=== PATIENT | female | born 1955 | race Caucasian/White ===

== ENCOUNTER 2016-05-28 10:11 | Day surgery (SDC) | payer OTHER, MEDICAID ==
--- NOTE | 2016-05-27 17:45 | GHP ---
[f rep st] PREOP HISTORY AND PHYSICAL DATE OF ADMISSION: 05/28/2016 HISTORY OF PRESENT ILLNESS: The patient is a 60-year-old, right-hand dominant, female with renal failure not yet on dialysis. She anticipates needing dialysis soon and so she is here to discuss arteriovenous fistula creation. Ultrasound in the office revealed a cephalic vein in the upper arm measuring 3.1 mm and 3.0 mm at the wrist. She had an upper arm basilic vein on the left side measuring 2.7 mm. Risks and options have been fully discussed including, but not limited to, bleeding, infection, nerve injury, steal syndrome, failure to mature, need for revision, need for alternate access and other problems, and she requests to proceed. PAST MEDICAL HISTORY: Includes diabetes, hypertension, chronic kidney disease, anemia, pulmonary hypertension on oxygen. PAST SURGICAL HISTORY: Lung cancer surgery and heart valve surgery. MEDICATIONS: Kionex, torsemide, magnesium, Cymbalta, aspirin, Humulin insulin, simvastatin, Coreg, vitamin, Benadryl, calcitriol, ranitidine, Zofran. ALLERGIES: Glipizide. SOCIAL HISTORY: The patient is . She is a nondrinker, nonsmoker. FAMILY HISTORY: Diabetes and cancer, type unspecified. REVIEW OF SYSTEMS: Includes nausea. PHYSICAL EXAM: GENERAL: Reveals a chronically ill-appearing, 60-year-old female, alert and oriented x3, in no acute distress with oxygen. HEENT: Normocephalic atraumatic. CHEST: Clear to auscultation bilaterally with midline scar. CARDIAC: Regular rate and rhythm. ABDOMEN: Soft, nontender, with a rash. EXTREMITIES: Palpable radial pulses. IMPRESSION: This is a 60-year-old female with multiple comorbidities and chronic kidney disease, anticipating initiation of dialysis. PLAN: Plan is to proceed with a left arteriovenous fistula creation. This will likely be brachiocephalic. We will be getting clearance from her texturing machine fixer and her pressurised container filler. There was some talk of biopsying the rash on her abdominal wall, but per her human resources team member this is not needed. Again risks and options have been discussed and she requests to proceed. /[id number]/MODL MTDD
[2016-05-28 13:46] LABS: % IMMATURE GRANULYOCYTES 0.3 % (0.0-1.1); ABSOLUTE IMMATURE GRANULOCYTES 0.02 10^3/uL (0.00-0.10); ADD DIFF? NO; ADD MORPH? NO; ADD SCAN? NO; ATYPICAL LYMPHOCYTE FLAG 0 (0-99); FRAGMENT RBC FLAG 20 (0-99); HEMATOCRIT 27.8 % (38.0-47.0); HEMOGLOBIN 9.1 g/dL (12.6-16.3); LEFT SHIFT FLG 0 (0-99); LIPEMIA HEMOLYSIS FLAG 80 (0-99); MEAN CELL HEMOGLOBIN 30.4 pg (27.9-34.1); MEAN CELL HEMOGLOBIN CONCENTR. 32.7 g/dL (32.4-36.7); MEAN PLATELET VOLUME 9.6 fL (8.7-11.7); PLATELET CLUMPS FLAG 10 (0-99); PLATELET COUNT 232 10^3/uL (150-400); RED BLOOD CELL COUNT 2.99 10^6/uL (4.18-5.33); RED CELL DISTRIBUTION WIDTH 13.5 % (11.5-15.2)
[2016-05-28] MEDS ORDERED: LR 1,000 ML IV ONE (14:03)
[2016-05-28 14:14] LABS: ANION GAP 11 mEq/L (8-16); CALCIUM 8.8 mg/dL (8.5-10.4); CARBON DIOXIDE 27 mEq/l (22-31); CHLORIDE 103 mEq/L (97-110); GLOMERULAR FILTRATION RATE 16; GLUCOSE 135 mg/dL (70-100); POTASSIUM 5.4 mEq/L (3.5-5.2); SODIUM 141 mEq/L (134-144)
[2016-05-28] MEDS ORDERED: ceFAZolin 2 GM/DEXTROSE 100 ML IV ONE (14:30)
[2016-05-28] MEDS ORDERED: THROMBIN (RECOMBINANT) 20,000 UNIT SPRAY TP ONE (15:27)
[2016-05-28] MEDS ORDERED: SKIN ADHESIVE (DERMABOND) 1 EACH TP ONE (15:27)
[2016-05-28] MEDS ORDERED: THROMBIN (RECOMBINANT) 5,000 UNIT VIAL TP ONE (15:28)
[2016-05-28] MEDS ORDERED: BUPIVACAINE 0.5% 30 ML SDV ONE (15:28)
[2016-05-28] MEDS ORDERED: PAPAVERINE HCL 60 MG/2 ML SDV ONE (15:28)
[2016-05-28] MEDS ORDERED: PROTAMINE SULFATE 50 MG/5 ML VIAL IVP ONE (15:28)
[2016-05-28] MEDS ORDERED: MIDAZOLAM 2 MG/2 ML VIAL ONE (15:33)
[2016-05-28] MEDS ORDERED: LIDOCAINE 1% 30 ML SDV ONE (15:49)
--- NOTE | 2016-05-28 21:20 | GOP ---
[f rep st] OPERATIVE REPORT DATE OF OPERATION: 05/28/2016 SURGEON: Anup Davis MD CATALOG LIBRARY ASSISTANT: KLEVER Aburto ANESTHESIA: General endotracheal. ANESTHESIOLOGIST: Dr. Rivas PREOPERATIVE DIAGNOSIS: Chronic renal failure. POSTOPERATIVE DIAGNOSIS: Chronic renal failure. PROCEDURE PERFORMED: 1. Ultrasound vein mapping, left arm. 2. Left brachiocephalic arteriovenous fistula. FINDINGS: Patient was found to have an adequate cephalic vein of 3.1 mm in the upper arm. The ceph alic vein was much smaller at the wrist. Basilic vein was not significantly larger either in the upp er arm. DESCRIPTION OF PROCEDURE: Patient taken to the operating room, where she received satisfactory gene ral endotracheal anesthesia by Dr. Rivas. She was placed in the supine position with her left arm o utstretched on an arm board, prepped and draped in the usual sterile fashion. Ultrasound was used to evaluate the veins with the above-noted findings. A curvilinear incision was made in the antecubital space. Dissection was carried down through subcutaneous tissue, and the ce phalic vein was dissected free down into the upper forearm. The biceps aponeurosis was divided, and the brachial artery was dissected free and controlled with vessel loops. The patient was systemically heparinized. After adequate circulation time, the cephalic vein was di vided distally with 2-0 silk ties and was rotated over to the brachial artery. End-to-side anastomo sis was made to the brachial artery with running 6-0 Prolene suture, creating a good AV fistula. Fl ow was first established through the fistula and then back down the hand. Good radial pulse maintai brennon and a good flow in the fistula was present. The suture line appeared to be hemostatic. The heparin was reversed with protamine. The wound was infiltrated with 0.5% Marcaine and some topi kellie thrombin was placed in the wound as well. A couple of branches to the cephalic vein were multip ly hemoclipped and divided, and then the wound was closed in layers using 3-0 Vicryl for the subcuta neous tissue, 4-0 Monocryl subcuticular stitch for the skin, and the wound was dressed. She tolerat ed the procedure well. She was taken to recovery room in good condition. There were no complicatio ns. /[id number]/MODL
== END 2016-05-28 18:35 | disposition home health service (06) ==
LOC: FSGY 10:11
PROVIDERS: ATTEND Surgery
PROC: 03180ZD Bypass Left Brachial Artery to Upper Arm Vein, Open Approach (ICD-10-PCS; principal; 2016-05-28 15:00)
DX: N18.6 End stage renal disease (principal); E11.22 Type 2 diabetes mellitus with diabetic chronic kidney disease; I12.0 Hypertensive chronic kidney disease with stage 5 chronic kidney disease or end stage renal disease; Z79.4 Long term (current) use of insulin; D64.9 Anemia, unspecified; I27.2 Other secondary pulmonary hypertension; I25.10 Atherosclerotic heart disease of native coronary artery without angina pectoris; J44.9 Chronic obstructive pulmonary disease, unspecified; Z85.118 Personal history of other malignant neoplasm of bronchus and lung
CPT/HCPCS: J0690; J1644; J2250; J2440; J2720

== ENCOUNTER 2016-07-10 19:23 | Inpatient (IN) | payer OTHER, MEDICAID ==
[2016-07-10] MEDS ORDERED: VANCOMYCIN HCL/NORMAL SALINE 250 ML IV ONE (20:10)
--- NOTE | 2016-07-10 20:28 | EDPHY ---
H & P Time Seen by Provider: 07/10/16 19:51 HPI/ROS: CHIEF COMPLAINT: Red leg for 3 days HISTORY OF PRESENT ILLNESS: This 60-year-old woman has a history of MRSA and presents with a red swollen left leg for the last 3 days. It is moderate in nature and not associated with fever or chills. It is associated with some chronic wounds which did look much better last week. Symptoms not better worse with walking or palpation. REVIEW OF SYSTEMS: Eye: no change in vision ENT: no sore throat Cardiac: no chest pain or syncope Pulmonary: no cough or SOB, stable respiratory status on 2 L nasal cannula at home Abdomen: No vomiting or diarrhea but increased abdominal girth and ascites in her abdomen. Musculoskeletal: no back pain Skin: As above in HPI Neuro: no headache Constitutional: no fever : no urinary symptoms A comprehensive 10 point review of systems is otherwise negative aside from elements mentioned in the history of present illness. PAST MEDICAL HISTORY: Discharge summary dated 02/01/2016 personally reviewed shows acute on chronic renal failure, hyperkalemia, pulmonary hypertension, right-sided heart failure, history of mitral valve repair, diabetes type 2. Also includes right ankle surgery in 2014 and history of MRSA and right-sided lung resection for cancer when she was much younger Social history: Here with family members, nonsmoker 36.6 temp General Appearance: Alert and conversant, cooperative. Eyes: No scleral icterus. ENT, Mouth: Normal mucous membranes. Respiratory: Normal respiratory effort, breath sounds equal, lungs are clear to auscultation. Cardiovascular: Regular rate and rhythm. Fistula in the left AC has a palpable thrill. Gastrointestinal: Abdomen is soft and non tender. Distended, likely ascites. Neurological: Alert and oriented x3. Normally conversant. Face symmetric, normal movement and sensation in all extremities. Skin: Patient has erythema on her left anterior gardiner extending from the ankle snf up her leg and especially red around 2 open lateral wounds. No lymphangitis but warm to the touch. No crepitus or fluctuance. Also multiple red papules from her MRSA on the back. Musculoskeletal: Peripheral edema left 1+ none on the right. Psychiatric: Not agitated. Emergency Department course/MDM: Patient's primary care is in [place]. Her rn anesthetist is in [place]. Her farmworker diversified crops is Rodrigo chapman at [facility]. Plan for IV antibiotics to cover MRSA with vancomycin, admission to hospitalist service. Does not have SIRS criteria in the emergency department. Smoking Status: Former smoker Constitutional: Initial Vital Signs Heart Rate 79 07/10/16 19:38 Respiratory Rate 16 07/10/16 19:38 Blood Pressure 123/56 H 07/10/16 19:38 O2 Sat (%) 100 07/10/16 19:38 O2 Delivery Mode Nasal Cannula O2 (L/minute) 2 Allergies/Adverse Reactions: adhesive Allergy (Verified 07/10/16 19:36) glipizide Allergy (Verified 11/01/14 05:01) Other-Enter Comments Home Medications: Medication Instructions Recorded Multivitamins [Multivitamin (*)] 1 each PO DAILY 09/22/14 Aspirin EC [Aspirin EC 81 mg (*)] 81 mg PO DAILY #100 tab 11/08/14 Simvastatin [Zocor] 20 mg PO HS #30 tablet 11/08/14 DULoxetine [Cymbalta 60 MG (*)] 60 mg PO BID 09/13/15 Fluticasone/Vilanterol [Breo 1 each IH DAILY #0 09/13/15 Ellipta 100-25 Mcg INH] Kionex 15 g PO DAILY 09/13/15 Calcitriol [Calcitriol (*)] 0.25 mcg PO WE 12/12/15 CLOBETASOL PROPIONATE 1 samantha TP DAILY PRN 01/30/16 MUPIROCIN 1 samantha TP DAILY PRN 01/30/16 Ondansetron HCl [Zofran] 4 mg PO Q8 PRN 01/30/16 Ranitidine HCl [Taladine] 150 mg PO DAILY #60 capsule 02/01/16 Torsemide [Demadex] 40 mg PO DAILY AT 10AM #30 tab 02/01/16 Insulin 70/30 Human [Novolin 70/30 6 unit SC HS 07/10/16 (*)] Insulin 70/30 Human [Novolin 70/30 8 unit SC DAILY 07/10/16 (*)] Metolazone [Zaroxolyn] 2.5 mg PO FR 07/10/16 Sevelamer Carbonate [Renvela] 800 mg PO TID 07/10/16 Torsemide [Demadex] 20 mg PO DAILY@17 07/10/16 hydrOXYzine HCL [hydrOXYzine HCL 12.5 mg PO Q8 PRN 07/10/16 (RX)] Medical Decision Making Consult/Admit Bed Type: [place] [id number] - Data Points Laboratory Results: Laboratory Results 07/10/16 20:40 07/10/16 20:40 07/10/16 07/10/16 07/10/16 20:40 20:40 20:40 WBC 6.49 10^3/uL 10^3/uL (3.80-9.50) RBC 2.91 10^6/uL L 10^6/uL (4.18-5.33) Hgb 8.7 g/dL L g/dL (12.6-16.3) Hct 26.9 % L % (38.0-47.0) MCV 92.4 fL fL (81.5-99.8) MCH 29.9 pg pg (27.9-34.1) MCHC 32.3 g/dL L g/dL (32.4-36.7) RDW 13.4 % % (11.5-15.2) Plt Count 212 10^3/uL 10^3/uL (150-400) MPV 10.3 fL fL (8.7-11.7) Neut % (Auto) 72.1 % % (39.3-74.2) Lymph % (Auto) 13.4 % L % (15.0-45.0) Geary % (Auto) 7.9 % % (4.5-13.0) Eos % (Auto) 5.7 % % (0.6-7.6) Baso % (Auto) 0.6 % % (0.3-1.7) Nucleat RBC Rel Count 0.0 % % (0.0-0.2) Absolute Neuts (auto) 4.68 10^3/uL 10^3/uL (1.70-6.50) Absolute Lymphs (auto) 0.87 10^3/uL L 10^3/uL (1.00-3.00) Absolute Monos (auto) 0.51 10^3/uL 10^3/uL (0.30-0.80) Absolute Eos (auto) 0.37 10^3/uL 10^3/uL (0.03-0.40) Absolute Basos (auto) 0.04 10^3/uL 10^3/uL (0.02-0.10) Absolute Nucleated RBC 0.00 10^3/uL 10^3/uL (0-0.01) Immature Gran % 0.3 % % (0.0-1.1) Immature Gran # 0.02 10^3/uL 10^3/uL (0.00-0.10) PT TNP INR TNP APTT TNP VBG Lactic Acid Sodium 132 mEq/L L mEq/L (134-144) Potassium 5.3 mEq/L H mEq/L (3.5-5.2) Chloride 92 mEq/L L mEq/L (97-110) Carbon Dioxide 28 mEq/l mEq/l (22-31) Anion Gap 12 mEq/L mEq/L (8-16) BUN 95 mg/dL H mg/dL (7-23) Creatinine 3.8 mg/dL H mg/dL (0.6-1.0) Estimated GFR 12 Glucose 245 mg/dL H mg/dL (70-100) Calcium 8.4 mg/dL L mg/dL (8.5-10.4) Total Bilirubin 1.0 mg/dL mg/dL (0.1-1.4) Specimen Hemolysis 113 07/10/16 20:40 WBC RBC Hgb Hct MCV MCH MCHC RDW Plt Count MPV Neut % (Auto) Lymph % (Auto) Geary % (Auto) Eos % (Auto) Baso % (Auto) Nucleat RBC Rel Count Absolute Neuts (auto) Absolute Lymphs (auto) Absolute Monos (auto) Absolute Eos (auto) Absolute Basos (auto) Absolute Nucleated RBC Immature Gran % Immature Gran # PT INR APTT VBG Lactic Acid 0.9 mmol/L mmol/L (0.7-2.1) Sodium Potassium Chloride Carbon Dioxide Anion Gap BUN Creatinine Estimated GFR Glucose Calcium Total Bilirubin Specimen Hemolysis Medications Given: Discontinued Medications Vancomycin/Sodium Chloride (Vancomycin 1 Gm (Premix)) 250 mls @ 250 mls/hr IV EDNOW ONE PRN Reason: Protocol Stop: 07/10/16 21:09 Last Admin: 07/10/16 21:35 Dose: 250 mls Departure - Departure Disposition: [facility] Acute Clinical Impression: Renal failure, Left leg cellulitis Condition: Fair
[2016-07-10 20:47] LABS: % IMMATURE GRANULYOCYTES 0.3 % (0.0-1.1); ABSOLUTE IMMATURE GRANULOCYTES 0.02 10^3/uL (0.00-0.10); ADD DIFF? NO; HEMATOCRIT 26.9 % (38.0-47.0); HEMOGLOBIN 8.7 g/dL (12.6-16.3); LEFT SHIFT FLG 0 (0-99); MEAN CELL HEMOGLOBIN 29.9 pg (27.9-34.1); MEAN CELL HEMOGLOBIN CONCENTR. 32.3 g/dL (32.4-36.7); MEAN CELL VOLUME 92.4 fL (81.5-99.8); MEAN PLATELET VOLUME 10.3 fL (8.7-11.7); PLATELET COUNT 212 10^3/uL (150-400); RED BLOOD CELL COUNT 2.91 10^6/uL (4.18-5.33); RED CELL DISTRIBUTION WIDTH 13.4 % (11.5-15.2)
[2016-07-10 20:48] LABS: ADD MORPH? NO; ADD SCAN? NO; ATYPICAL LYMPHOCYTE FLAG 10 (0-99); FRAGMENT RBC FLAG 0 (0-99); LIPEMIA HEMOLYSIS FLAG 80 (0-99); PLATELET CLUMPS FLAG 0 (0-99)
[2016-07-10 20:59] LABS: ANION GAP 12 mEq/L (8-16); CALCIUM 8.4 mg/dL (8.5-10.4); CARBON DIOXIDE 28 mEq/l (22-31); CHLORIDE 92 mEq/L (97-110); CREATININE 3.8 mg/dL (0.6-1.0); GLOMERULAR FILTRATION RATE 12; GLUCOSE 245 mg/dL (70-100); POTASSIUM 5.3 mEq/L (3.5-5.2); SODIUM 132 mEq/L (134-144); SPECIMEN HEMOLYSIS 113
[2016-07-10] MEDS ORDERED: ONDANSETRON 4 MG/2 ML VIAL IVP PRN (21:21)
[2016-07-10] MEDS ORDERED: ACETAMINOPHEN 325 MG TAB PO PRN (21:21)
[2016-07-10] MEDS ORDERED: ONDANSETRON DISINTEGRATING 4 MG TAB PO PRN (21:21)
[2016-07-10] MEDS ORDERED: NS 500 ML IV ONE (21:58)
[2016-07-10] MEDS ORDERED: ALBUMIN 25% 200 ML IV ONE (21:59)
[2016-07-10 22:31] LABS: APTT 26.9 SEC (23.0-38.0); INR 1.18 (0.83-1.16)
[2016-07-10] MEDS: HEPARIN 5,000 UNIT/0.5 ML SYR SC SCH (23:05)
--- NOTE | 2016-07-10 23:23 | GHP ---
[f rep st] HISTORY AND PHYSICAL DATE OF ADMISSION: 07/10/2016 CHIEF COMPLAINT: Redness of her leg. HISTORY OF PRESENT ILLNESS: This is a 60-year-old female with a history of severe pulmonary hypertension secondary to mitral reg urgitation status post valve repair who presents with complaints of reddening of her left lower extr emity near one of her chronic pustular lesions. The patient has a history of MRSA skin infections i n the past and knew to present to the hospital. The patient additionally notes that she had marked distention of her abdomen and ascites over the couple weeks preceding her presentation. She was mirza luated in the outpatient setting and had up titration of her torsemide diuretic dosing to assist wit h this fullness in her abdomen. Did note response to the higher dose of torsemide with decreased ab dominal distention and increased urination. She says her abdomen hurts less now. She reports that she has been taking her normal oral intake and other medications as directed. She denies any headac hes, any vision changes, any nausea, any vomiting, any diarrhea, or changes in her bowel habits, any dysuria or hematuria. She denies cough, any subjective fevers or chills and denies chest pain. Yamil canas has a fistula that has been placed in the antecubital area of her left arm. The thrill has been s table. She has not had any issues with this area. PAST MEDICAL HISTORY: 1. Severe mitral regurgitation status post mitral valve repair. 2. Pulmonary hypertension secondary to mitral regurgitation. 3. Chronic kidney disease. Baseline creatinine in the 2s. 4. History of lung cancer status post right lobectomy in her 20s. 5. Diabetes. 6. Chronic hypoxic respiratory failure on 2 L. 7. Pustular skin lesions with biopsies consistent with changes of excoriation and prurigo nodularis . SOCIAL HISTORY: She lives independently, denies alcohol, tobacco, or illicit drugs. FAMILY HISTORY: Positive for coronary disease. ADVANCE DIRECTIVES: The patient wishes to be no core/yes intubation. Her kids would be her medical decision makers. REVIEW OF SYSTEMS: A 10-point review of systems is negative with the exception of that reported in the HPI. PHYSICAL EXAMINATION: VITAL SIGNS: Blood pressure 121/60, heart rate 77, respiratory rate 14, 96% on 2 L. Afebrile at 36.6. GENERAL: This is a healthy-appearing middle-aged female in no acute dis tress. HEENT: Notable for dry mucous membranes. Eye exam is negative for any icterus. CARDIAC: Patient has regular rate and rhythm. Systolic murmur is appreciated. PULMONARY: She has good resp iratory effort. No rales or rhonchi are appreciated. GASTROINTESTINAL: She has marked abdominal d istention. ABDOMEN: Soft and nontender to palpation. MUSCULOSKELETAL: Notable for trace lower ex tremity edema bilaterally. NEUROLOGIC: She is alert and oriented x3. SKIN: The patient has eryth chadd surrounding one of the chronic lesions of her left lower extremity extending along the lateral a spect of her calf. No streaking is noted. PSYCHIATRIC: She is pleasant and cooperative on intervi ew and examination. DATA: White count 6.4, hematocrit 26.9, platelet count of 212, sodium is 132 which is below her bas elines. Potassium is 3.5, BUN is 95, creatinine is 3.8, which is well above her previous baselines and blood glucose is 245. There is mild hemolysis of the sample. Chest x-ray which I personally re viewed and interpreted. Queries in early lower lobe pneumonia with an elevated right hemidiaphragm. ASSESSMENT AND PLAN: This is a 60-year-old female presenting with new cellulitis of the left lower extremity. 1. Acute left lower extremity cellulitis. The patient has a history of MRSA skin infections. We w ill initiate IV vancomycin based on her renal function. We will give 1 dose now and have pharmacy f ollow subsequent dosing. 2. Acute on chronic kidney disease. I suspect, based on the patient's history, that we are seeing a prerenal acute kidney injury from her increased torsemide dosing. Of course, we cannot calculate FENa as the patient is actively on diuretics. We will send labs so we can calculate an FEUrea. I a m going to hold her diuretics this evening, give a small fluid bolus with IV albumin in an attempt t o appropriately hydrate her kidneys. We will order a paracentesis in the morning, again with joyce tobias and ask Cardiology to follow along so we can coordinate ongoing diuretic decisions. We will repea t her BMP in the morning. 3. Chronic ascites. This is a continuous complaint for this patient. She has responded well to th e torsemide and is more comfortable, but, of course, has kidney complications. We will ask Interven tional Radiology to tap in the morning allowing us more room for possible hydration if necessary. 4. Pulmonary hypertension. We will continue to treat with diuretics once we see improvement in her renal function. We will hold them overnight and again discuss with her Cardiology Team. 5. Diabetes. We will continue her home medications. Renally dose if appropriate. 6. Chronic hypoxic respiratory failure. Patient is at her baseline oxygen saturations. We will co ntinue follow prophylaxis with heparin due to her acute kidney injury. 7. Hyperkalemia. This may be a complication of her acute kidney injury. However, the specimen is hemolyzed and we will wait to treat with Kayexalate and repeat the labs after fluid resuscitation in the morning. We will place the patient on telemetry monitoring overnight and check an EKG to rule out any acute EKG changes. 8. Hyponatremia. The patient is complicated. She is chronically hypervolemic. However, this is n ew hyponatremia, and in the setting of increased diuretic dosing and elevated BUN, I do suspect this is hypovolemic in nature. We will hydrate as above and check the FEUrea for confirmation of the ca use of her acute kidney injury. DIET: Renal. DISPOSITION: I expect greater than 2 midnights as the patient is presenting with acute cellulitis, acute kidney injury, and electrolyte abnormalities requiring monitoring and care. I have discussed the case with the emergency room physician. Patient will be triaged to the PCU for cardiac monitori ng and care. /[id number]/MODL
[2016-07-10] MEDS ORDERED: hydrOXYzine HCL 25 MG TAB PO PRN (23:57)
[2016-07-10] MEDS ORDERED: MUPIROCIN 2% 22 GM OINT TP PRN (23:57)
[2016-07-11 04:48] LABS: % IMMATURE GRANULYOCYTES 0.2 % (0.0-1.1); ABSOLUTE IMMATURE GRANULOCYTES 0.01 10^3/uL (0.00-0.10); ADD DIFF? NO; ADD MORPH? NO; ADD SCAN? NO; ATYPICAL LYMPHOCYTE FLAG 0 (0-99); FRAGMENT RBC FLAG 0 (0-99); HEMATOCRIT 25.1 % (38.0-47.0); LEFT SHIFT FLG 0 (0-99); LIPEMIA HEMOLYSIS FLAG 80 (0-99); MEAN CELL HEMOGLOBIN 30.2 pg (27.9-34.1); MEAN CELL HEMOGLOBIN CONCENTR. 31.9 g/dL (32.4-36.7); MEAN CELL VOLUME 94.7 fL (81.5-99.8); MEAN PLATELET VOLUME 9.4 fL (8.7-11.7); PLATELET CLUMPS FLAG 0 (0-99); PLATELET COUNT 178 10^3/uL (150-400); RED BLOOD CELL COUNT 2.65 10^6/uL (4.18-5.33); RED CELL DISTRIBUTION WIDTH 13.3 % (11.5-15.2)
[2016-07-11 05:03] LABS: ANION GAP 12 mEq/L (8-16); CALCIUM 8.3 mg/dL (8.5-10.4); CARBON DIOXIDE 32 mEq/l (22-31); CHLORIDE 95 mEq/L (97-110); GLOMERULAR FILTRATION RATE 11; GLUCOSE 228 mg/dL (70-100); POTASSIUM 4.7 mEq/L (3.5-5.2); SODIUM 139 mEq/L (134-144)
[2016-07-11] MEDS: HEPARIN 5,000 UNIT/0.5 ML SYR SC SCH ×3 (05:38→21:58)
[2016-07-11 06:04] LABS: COLOR YELLOW; LEUKOCYTE ESTERASE,URINE NEGATIVE (NEGATIVE); NITRITE,URINE NEGATIVE (NEGATIVE)
[2016-07-11 06:08] LABS: MUCUS TRACE /lpf (NONE-1+)
[2016-07-11] MEDS: Fluticasone/Vilanterol [Breo Ellipta 100-25 Mcg Inh] IH SCH (08:34)
--- NOTE | 2016-07-11 09:16 | WOCRNPDOC ---
WOCRN Advanced Assessment Note - Skin Integrity Problem, Advanced Assess Total Body Dressing Type: Open to Air Wound Bed Constitution: Scab, Dried Exudate Site Measurement - Head-to-Toe Length X Width X Depth (cm): 0.5x0.5x0.1-jayden Skin Integrity Problem Comment: Multiple lesions in varying stages of healing. Some scarred, so open. Some with jazzy wound erythema from being too dry. No obvious signs of infection but rather irritation from wounds not being able to close in a timely fashion. Advised silvasorb and alleyvns for small wounds that have jazzy wound erythema to AMBER Reyes. Wound care will no longer follow. Please reconsult prn.
[2016-07-11] MEDS ORDERED: ALBUMIN 25% 100 ML IV ONE (11:34)
[2016-07-11] MEDS: INSULIN 70/30 HUMAN 100 UNITS/ML SYR SC SCH (11:42)
[2016-07-11] MEDS: SEVELAMER HCL 800 MG TAB PO SCH ×2 (11:43→16:28)
[2016-07-11] MEDS: MULTIVITAMINS 1 EACH TAB PO SCH (11:43)
[2016-07-11] MEDS: ASPIRIN EC 81 MG TAB PO SCH (11:43)
[2016-07-11] MEDS: FAMOTIDINE 20 MG TAB PO SCH (11:43)
[2016-07-11] MEDS: DULoxetine 60 MG CAP PO SCH ×2 (11:43→21:57)
--- NOTE | 2016-07-11 15:26 | HOSPPROG ---
Hospitalist Progress Note Assessment/Plan: #Acute on CKD: due to overdiuresis. BL 2,8, now 4. FeUrea 26% is indicative of prerenal etiology. Received gentle IVFs overnight and albumin last night. Holding diuretics. Dosed albumin after paracentesis. Repeat BMP in AM #Decompensated RHF with ascites: s/p 4.3L paracentesis today. Dosed albumin #h/o severe pulmonary HTN: watch fluid status closely. Have asked for Cardiology to assess as well. #h/o severe MR: MV repair in 2014 #Chronic hypoxemic resp failure: baseline 2L #Prurigo nodularis with LLE cellulitis: cont renally-dosed Vancomycin. Blood cxs NGTD #Uncontrolled DM: cont home insulin #Benign HTN: cont home meds #Diet: renal #DVT ppx: SQH #Disp: warrants inpt admission with IV abx, serial BMPs for CORI Subjective: no CP or SOB Objective: Vital Signs Temp Pulse Resp BP Pulse Ox 37.0 C 85 18 143/70 H 98 07/11/16 12:00 07/11/16 12:00 07/11/16 12:00 07/11/16 12:00 07/11/16 12:00 Laboratory Results 07/11/16 04:26 07/11/16 04:26 07/10/16 07/11/16 07/12/16 05:59 05:59 05:59 Intake Total 1700 Balance 1700 PT 15.0 SEC (12.0-15.0) 07/10/16 22:10 INR 1.18 (0.83-1.16) H 07/10/16 22:10 - Physical Exam Constitutional: no apparent distress Eyes: PERRL Ears, Nose, Mouth, Throat: moist mucous membranes Cardiovascular: regular rate and rhythym, edema (+1 LE edema) Respiratory: no respiratory distress, no rales or rhonchi Gastrointestinal: normoactive bowel sounds, other (paracentesis site with bandage) Genitourinary: no bladder fullness Skin: warm, other (multiple skin lesions on trunk, extremities. LLE lesion with surrounding cellulitis. No purulence) Musculoskeletal: full muscle strength Neurologic: AAOx3 ICD10 Worksheet Patient Problems: Problems Problem Status Onset Severe mitral regurgitation Acute Pulmonary hypertension, moderate to severe Chronic Chronic anemia Chronic CKD (chronic kidney disease) stage 4, GFR 15-29 ml/min Chronic Abnormal urinalysis Acute Facial trauma Acute Forehead contusion Acute Type 2 diabetes mellitus Chronic On supplemental oxygen therapy Chronic Chronic diastolic CHF (congestive heart failure), NYHA class 3 Chronic S/P mitral valve repair Acute Chronic Disease Mgmt/Transitional Care Acute Dyspnea Acute Generalized weakness Acute Congestive heart failure Acute Anemia Acute Renal failure Acute Hyperkalemia Acute MRSA (methicillin resistant Staphylococcus aureus) Acute 01/23/16 Left leg cellulitis Acute
--- NOTE | 2016-07-11 16:10 | GCON ---
[f rep st] CONSULTATION CARDIOLOGY CONSULTATION PRIMARY STATE FARM AGENT TEAM MEMBER: Dr. José Miguel Nixon. PRIMARY CITY MANAGER: Dr. Owens. We were asked by Dr. Yris Hurt to evaluate the patient for her acute on chronic right heart failure. HISTORY OF PRESENT ILLNESS: The patient is a 60-year-old female who is closely followed by Dr. Nixon. She has a history of previously diagnosed nonischemic dilated cardiomyopathy with subsequent normalization on medical therapy, severe MR status post mitral valve repair in 2014, chronic renal insufficiency with a baseline creatinine of 2.5, type 2 diabetes mellitus, hypertension, ongoing severe right heart failure with a PA pressure of 72 despite MV surgery, chronic hypoxic respiratory failure with ill-defined pulmonary disease. She was being seen by Dr. Baker at the Pul[facility] Clinic at the [facility] [place]. He noted a lower extremity wound; and given her history of MRSA infection, she was advised on hospitalization. She denies any fevers or chills. She has multiple excoriations all over her body that are fairly pruritic. She reports Dr. Owens has recently started on medication that has helped with the pruritus. She has been having severe abdominal distention, for which she had increased her dose of torsemide. Despite this, she had been having ongoing distention with associated lower extremity edema. Additionally, due to her renal insufficiency, an AV fistula has been placed in her left arm. She denies any PND, orthopnea, palpitations, presyncope, or syncope. PAST MEDICAL HISTORY: 1. Severe MR, status post mitral valve repair in 2014. At the time of surgery , she was thought to have functional MR. However, after normalization of ejection fraction, she did develop congestive heart failure. Further workup at that time, including CHIQUITA, suggested tethering restricted mobility of the posterior leaflet. 2. Pulmonary hypertension. 3. History of lung cancer, status post right lobectomy in her 20s. 4. Type 2 diabetes mellitus. 5. Chronic hypoxic respiratory failure, on 2 L/min. 6. 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 7. Previous nonischemic dilated cardiomyopathy with normalization of EF subsequently. 8. Hypertension. 9. Severe right heart failure with elevated PA pressures and severe recurrent ascites. SOCIAL HISTORY: The patient is single. She has supportive family. She denies any alcohol or tobacco abuse. FAMILY HISTORY: Positive for coronary artery disease. MEDICATIONS: Include aspirin 81 mg p.o. daily, Breo Ellipta, metolazone 2.5 mg p.o. every Friday, simvastatin, torsemide 40 mg p.o. in a.m. and 20 mg in p.m., betamethasone, Cymbalta, Humulin, Kionex, magnesium, multivitamin, mupirocin, oxygen, ranitidine, Renvela. ALLERGIES: Adhesive and glipizide. REVIEW OF SYSTEMS: As per HPI. A complete 10-point review of systems was obtained and is negative except for what is dictated. PHYSICAL EXAM: VITAL SIGNS: BP of 143/70, heart rate 85, respirations 18, O2 saturation 98% on 2 L, temp of 98.6 degrees Fahrenheit. GENERAL: She is a very pleasant female, appearing somewhat pale but in no apparent distress. HEENT: Eyes are without scleral icterus. NECK: Supple with no JVD. HEART: Regular rate and rhythm with a holosystolic murmur auscultated. LUNGS: Minimal crackles bilaterally in bases. ABDOMEN: Nontender, soft, with normoactive bowel sounds. SKIN: Multiple excoriations present with erythema noted in her left lower extremity without any significant edema or streaking. PSYCH: Normal mood and affect. NEURO: No focal deficits detected. LABORATORY STUDIES/X-RAYS: CBC with WBC 5.69, hemoglobin 8, hematocrit 25, platelet count 178. BMP with sodium 139, potassium 4.7, chloride 95, CO2 32, BUN 92, creatinine 4, glucose 228. Paracentesis performed today with 4 L of serosanguineous output. 07/10/2016 chest x-ray which showed persistent elevated right hemidiaphragm and suspected early left lower lobe pneumonia. The patient was discussed with Dr. Hurt. IMPRESSION AND PLAN: The patient is a 60-year-old female well known to us due to her extensive cardiac history. She presents with a concern of cellulitis in her left lower extremity. 1. Severe right heart failure with ascites. She had paracentesis with 4 L output. 2. Renal failure. Her creatinine is now much higher than her baseline at 4. We agree that diuretics can be held, especially since she has had paracentesis with relief to her abdominal distention. We will likely resume diuretics in the next day or two. 3. Severe pulmonary hypertension. She is at her current baseline in regard to her O2 needs. 4. Hypertension. Blood pressures are mildly elevated. /[id number]/MODL MTDD
[2016-07-11] MEDS ORDERED: ATORVASTATIN CALCIUM 10 MG TAB PO SCH (21:00)
[2016-07-11] MEDS ORDERED: INSULIN 70/30 HUMAN 100 UNITS/ML SYR SC SCH (21:00)
[2016-07-11] MEDS: CLOBETASOL 0.05% 15 GM OINT TUBE TP PRN (21:58)
[2016-07-12] MEDS: HEPARIN 5,000 UNIT/0.5 ML SYR SC SCH (04:58)
[2016-07-12] MEDS: SEVELAMER HCL 800 MG TAB PO SCH ×3 (05:19→12:18)
[2016-07-12 06:07] LABS: ANION GAP 10 mEq/L (8-16); CALCIUM 8.3 mg/dL (8.5-10.4); CARBON DIOXIDE 29 mEq/l (22-31); CHLORIDE 95 mEq/L (97-110); CREATININE 3.3 mg/dL (0.6-1.0); GLOMERULAR FILTRATION RATE 14; GLUCOSE 86 mg/dL (70-100); POTASSIUM 4.3 mEq/L (3.5-5.2); SODIUM 134 mEq/L (134-144)
[2016-07-12 06:12] LABS: VANCOMYCIN RANDOM LEVEL 10.3 mcg/mL (0.0-40.0)
[2016-07-12 07:45] VITALS: RESP 14; O2SAT 98
[2016-07-12] MEDS: DULoxetine 60 MG CAP PO SCH (09:08)
[2016-07-12] MEDS: INSULIN 70/30 HUMAN 100 UNITS/ML SYR SC SCH (09:09)
[2016-07-12] MEDS: ASPIRIN EC 81 MG TAB PO SCH (09:09)
[2016-07-12] MEDS: FAMOTIDINE 20 MG TAB PO SCH (09:09)
[2016-07-12] MEDS: MULTIVITAMINS 1 EACH TAB PO SCH (09:09)
[2016-07-12] MEDS: CLOBETASOL 0.05% 15 GM OINT TUBE TP PRN (09:10)
[2016-07-12] MEDS: Fluticasone/Vilanterol [Breo Ellipta 100-25 Mcg Inh] IH SCH (09:13)
--- NOTE | 2016-07-12 09:17 | HOSPPROG ---
Hospitalist Progress Note Assessment/Plan: #Acute on CKD: Cr improved to 3.3 today. Due to overdiuresis. Now at her goal wit of 138 lbs (per Dr. Nixon's recent clinic notes) #Decompensated RHF with ascites: s/p 4.3L paracentesis 07/11; was dosed albumin #h/o severe pulmonary HTN: watch fluid status closely. Have asked for Cardiology to assess as well. #h/o severe MR: MV repair in 2014 #Chronic hypoxemic resp failure: baseline 2L #Prurigo nodularis with LLE cellulitis: redness improved today. Blood cx NGTD. Change to Doxy for total 7 days abx #Uncontrolled DM: cont home insulin #Benign HTN: cont home meds #Diet: renal #DVT ppx: SQH #Disp: DC today Subjective: no Cp Objective: Vital Signs Temp Pulse Resp BP Pulse Ox 36.8 C 82 14 133/67 H 98 07/12/16 07:43 07/12/16 07:43 07/12/16 07:43 07/12/16 07:43 07/12/16 07:43 Laboratory Results 07/11/16 04:26 07/12/16 04:18 07/11/16 07/12/16 07/13/16 05:59 05:59 05:59 Intake Total 1700 1500 Output Total 300 Balance 1700 1200 PT 15.0 SEC (12.0-15.0) 07/10/16 22:10 INR 1.18 (0.83-1.16) H 07/10/16 22:10 - Physical Exam Constitutional: no apparent distress Eyes: PERRL Ears, Nose, Mouth, Throat: moist mucous membranes, hearing normal Cardiovascular: regular rate and rhythym, edema (trace LE edema BL legs) Respiratory: no respiratory distress, no rales or rhonchi Gastrointestinal: normoactive bowel sounds, soft, non-tender abdomen, no palpable masses Genitourinary: no bladder fullness Skin: other (diffuse nodular lesions over trunk/extremities. LUE fistula site with small scab, no purulence. LLE celluitis improved.) ICD10 Worksheet Patient Problems: Problems Problem Status Onset Abnormal urinalysis Acute Anemia Acute Chronic Disease Mgmt/Transitional Care Acute Congestive heart failure Acute Dyspnea Acute Facial trauma Acute Forehead contusion Acute Generalized weakness Acute Hyperkalemia Acute Left leg cellulitis Acute MRSA (methicillin resistant Staphylococcus aureus) Acute 01/23/16 Renal failure Acute S/P mitral valve repair Acute Severe mitral regurgitation Acute CKD (chronic kidney disease) stage 4, GFR 15-29 ml/min Chronic Chronic anemia Chronic Chronic diastolic CHF (congestive heart failure), NYHA class 3 Chronic On supplemental oxygen therapy Chronic Pulmonary hypertension, moderate to severe Chronic Type 2 diabetes mellitus Chronic
[2016-07-12] MEDS ORDERED: DOXYCYCLINE HYCLATE 100 MG CAP/TAB PO SCH (09:30)
[2016-07-12 11:22] VITALS: BP 131/53; PULSE 83; TEMP 97.9
--- NOTE | 2016-07-12 12:06 | SOAPPROG ---
SOAP Progress Note Assessment/Plan: Assessment:Plan: ARF on CRF-appears like she was overdiuresed -baseline creatinine 2.5 to 3. -creatinine up to 4, but now down to 3.3 -currently off diuretics -will likely need to resume tomorrow at usual outpatient dose -will follow ID-on abx -MRSA -antecubital inflammation at site of prior AVF surgery, R second toe swollen , erythematous with serous drainage AVF-recently placed -excellent bruit and thrill 07/12/16 12:03 Objective: Vital Signs Temp Pulse Resp BP Pulse Ox 36.6 C 83 14 131/53 H 98 07/12/16 11:20 07/12/16 11:20 07/12/16 11:20 07/12/16 11:20 07/12/16 11:20 Laboratory Results 07/11/16 04:26 07/12/16 04:18 07/11/16 07/12/16 07/13/16 05:59 05:59 05:59 Intake Total 1700 1500 Output Total 300 Balance 1700 1200 PT 15.0 SEC (12.0-15.0) 07/10/16 22:10 INR 1.18 (0.83-1.16) H 07/10/16 22:10 ICD10 Worksheet Patient Problems: Problems Problem Status Onset Left leg cellulitis Acute Renal failure Acute Abnormal urinalysis Acute Anemia Acute Chronic Disease Mgmt/Transitional Care Acute Congestive heart failure Acute Dyspnea Acute Facial trauma Acute Forehead contusion Acute Generalized weakness Acute Hyperkalemia Acute MRSA (methicillin resistant Staphylococcus aureus) Acute 01/23/16 S/P mitral valve repair Acute Severe mitral regurgitation Acute CKD (chronic kidney disease) stage 4, GFR 15-29 ml/min Chronic Chronic anemia Chronic Chronic diastolic CHF (congestive heart failure), NYHA class 3 Chronic On supplemental oxygen therapy Chronic Pulmonary hypertension, moderate to severe Chronic Type 2 diabetes mellitus Chronic
--- NOTE | 2016-07-12 13:12 | GCON ---
[f rep st] CONSULTATION NEPHROLOGY CONSULTATION. REASON FOR ADMISSION: Left lower extremity cellulitis. REASON FOR CONSULTATION: Acute on chronic renal failure. ASSESSMENT: 1. Acute on chronic renal failure, likely the result of over-diuresis. 2. Chronic kidney disease with a baseline renal function of 2.5-3. 3. History of pulmonary hypertension with right heart failure. 4. History of mitral valve disease status post mitral valve repair. 5. Type 2 diabetes. 6. MRSA. RECOMMENDATIONS: 1. Continue to follow off her diuretic therapy. 2. Resume diuretics when her creatinine is 3 or less. 3. Continue current antibiotics. 4. Avoid IVs, blood pressures, blood draws in the patient's left arm. HISTORY: The patient is a pleasant 60-year-old female who is followed by Dr. Bartolo Owens for her stage 4 chronic kidney disease. Her most recent EGFRs have been between 15 and 20. For this reason she had been referred to Dr. Davis and had a left upper arm AV fistula placed on 05/28/2016. It so unds like she had a small infection in the surgical incision in her left antecubital fossa. She was treated with antibiotics. She came into the emergency room on the with a 3-day history of a red swollen left lower leg. She was cultured and placed on antibiotics in the form of vancomycin due to her prior history of MRS Ching. Blood cultures have been negative. Per the patient's report, her wounds have responded nicely t o the antibiotics. She has several small round scabs below her knee on her left leg. On admission she was found to be in acute renal failure with a creatinine of 3.8. This went up to 4 the day after admission. Today it has come down to 3.3. On admission, the patient had been on Demadex as well as Zaroxolyn. These have been put on hold due to her renal insufficiency. Her typical baseline is 2.5-3. She received no other nephrotoxic medi cations since her admission. She did have a paracentesis for therapeutic relief of her ascites. PAST MEDICAL HISTORY: Type 2 diabetes since at least 2000, hyperlipidemia, congestive heart failure with mitral regurgitation and severe pulmonary hypertension. She has a decreased left ventricular ejection fraction that has been documented on echocardiogram performed 12/12/2015 where her EF had a ctually normalized from the 50% range up to 60% to 65%. She has ongoing severe pulmonary hypertensi on with a right ventricular systolic pressure of 84 with continued moderate to severe mitral regurgi tation after her mitral valve repair. She had a repair done on 11/01/[address] Candido Dominguez. She has history of lung cancer status post right lobectomy by Dr. Greg Delatorre at 23 years of age. She has depression and anxiety. She has macular degeneration and cataracts. She has had previous retinal detachment. PAST SURGICAL HISTORY: Cataract surgery, tonsillectomy, lung surgery, right ankle surgery x2, rodger l valve repair and laser treatment on her retina. OUTPATIENT MEDICATIONS: Multivitamin daily, aspirin 81 mg daily, simvastatin 20 mg daily, Kionex 15 g daily, Cymbalta 60 mg twice daily, fluticasone/vilanterol inhaler 1 inhalation daily, calcitriol 0.25 mcg weekly, ondansetron p.r.n., mupirocin daily, clobetasol topically if needed, torsemide 40 m g in the morning and 20 mg in the afternoon, ranitidine 150 mg daily, Renvela 1 tablet 3 times daily . Hydroxyzine p.r.n., insulin 70/30, 8 units in the morning and 6 units in the evening, metolazone 2.5 mg weekly. ALLERGIES: Adhesive tape and glipizide. FAMILY AND SOCIAL HISTORY: Remarkable for diabetes and cancer. She is a nondrinker and nonsmoker. REVIEW OF SYSTEMS: Negative except for that included in history of present illness. PHYSICAL EXAMINATION: VITAL SIGNS: She is afebrile with a temperature of 36.6, pulse 83, respirati ons 14, blood pressure 131/53. APPEARANCE: No apparent distress. SKIN: Pale. HEENT: Atraumatic, normocephalic. NECK: Unremarkable. HEART: Regular with a 2/6 murmur. LUNGS: Clear. ABDOMEN: Benign. EXTREMITIES: Trace edema. She has a right 2nd toe that is red and swollen with serous dr mariano. The circular scabs in her left lower extremity evidently are stable and the surrounding ginny lulitis appears now to have been resolved. ASSESSMENT: Acute on chronic renal failure. The patient appears like her volume status may be some what overcorrected. She came in on diuretic therapy. It looks like she may have been somewhat over -diuresed. It is possible that the large volume paracentesis resulted in further volume depletion. She had 4.3 L of fluid removed on the . Now her creatinine appears to be improving, having zen e down from level 4 down to 3.3. At the present time. I would keep her off her current diuretic th erapy and resume those medications once her creatinine is back to her normal baseline. I would rest art her diuretics when her creatinine is less than 3. She has a developing left upper arm AV fistula. This is a little bit over a month old. It is not q uite ready to be used but certainly has dilated nicely and likely can be used sometime after the mid dle of July if needed. Although dilated, I suspect the wall is still fragile and not fully arteria lized. She is currently on antibiotics in the form of vancomycin. Her level today was 10.3. She is gettin g wound care. I would continue antibiotics at the current dosing and completed a course of therapy for her cellulitis. It is not clear to me what the nature of the right 2nd toe lesion is but I susp ect it is likely another area of cellulitis that needs to be watched and treated. Copy requested to: Maira Vigil MD [id number] [place] [address] Bartolo Owens MD [address], [address] [address] /[id number]/MODL
--- NOTE | 2016-07-12 15:28 | GDS ---
[f rep st] DISCHARGE SUMMARY DISCHARGE DIAGNOSES: 1. Acute on chronic kidney disease. 2. Decompensated right heart failure with ascites, history of severe pulmonary hypertension. 3. History of severe mitral regurgitation with mitral valve repair in 2015. 4. Chronic hypoxemic respiratory failure, on 2 L baseline. 5. Prurigo nodularis with new left lower extremity cellulitis. 6. Uncontrolled diabetes. 7. Benign hypertension. 8. History of lung cancer, status post right lobectomy. PRIMARY HATCH SUPERVISOR: Dr. Nixon. HISTORY OF PRESENT ILLNESS: The patient is a 60-year-old female with a history of severe pulmonary hypertension secondary to mitral regurgitation, status post valve repair, presenting with redness of her lower extremity near one of her chronic pustular lesions. She has a history of MRSA skin infections in the past. She also complains of significant abdominal distention and ascites over the last couple weeks. She was seen by Dr. Nixon and had her torsemide up titrated to 40 mg twice a day. Denies fevers, chills, sweats, nausea, vomiting , or diarrhea. She has a fistula that is in place in left antecubital fossa. She has not had any issues at the incision sites. HOSPITAL COURSE BY PROBLEM: 1. Acute on chronic kidney disease: Baseline creatinine is less than 3, it was elevated to 3.8 at time of admission. Suspect this is secondary to overdiuresis. Patient has been dosing herself, along with increased dose per component assembler supervisor. FE urea was less than 35%, indicative of prerenal etiology. She received gentle IV fluids and albumin on day of admission with improvement. Creatinine today is 3.3. Advised patient to restart diuretics tomorrow at her previous dose of torsemide 20mg AM, 40mg PM, metolazone 2.5 on Fridays. She is to follow up with her outpatient choke reamer. 2. Left lower extremity cellulitis:chronic lesions and a history of MRSA in the past. Redness improved with IV vancomycin, and we will transition to doxycycline for a total of 7 days antibiotics. 3. Severe pulmonary hypertension secondary to mitral regurgitation. I appreciate Cardiology consultation. Again, plan for diuretics as stated above. Today she is at her goal weight of 138lbs per Dr. Nixon's most recent clinic note. BMP next week and FU with Cards Friday. 4. History of lung cancer: Status post right lobectomy. 5. Uncontrolled diabetes, continue home regimen. 6. Chronic hypoxemic respiratory failure, stable on her home 2 L. 7. Prurigo nodularis was found on biopsy. Patient to continue topical steroids. 8. Chronic ascites: This is secondary to her severe pulmonary hypertension. Patient may benefit from monthly paracentesis to avoid further admissions, given patient has been titrating her own diuretics at home. Patient underwent paracentesis with 4.3 L taken off, and albumin dosed after. 9. Hyperkalemia: At time of admission has since resolved, this is secondary to CORI. 10. Hypovolemic hyponatremia: Secondary to overdiuresis. This was improved with mild fluid. DISPOSITION: Patient is stable for discharge. MEDICATIONS: New medication of doxycycline. FOLLOWUP: 1. BMP on 07/18/2016. 2. Cardiology on 07/19/2016. 3. Her primary choke reamer. 4. PCP: Would consider more frequent therapeutic paracenteses for comfort. /[id number]/MODL MTDD
[2016-07-17] MEDS ORDERED: CALCITRIOL 0.25 MCG CAP PO SCH (09:00)
== END 2016-07-12 13:42 | disposition home or self-care (01) | DRG 683 ==
LOC: F3N 22:24
PROVIDERS: ADMIT Hospitalist; ATTEND Hospitalist
PROC: 0W9G3ZZ Drainage of Peritoneal Cavity, Percutaneous Approach (ICD-10-PCS; principal; 2016-07-11)
DX: N17.9 Acute kidney failure, unspecified (principal); R18.8 Other ascites; I27.2 Other secondary pulmonary hypertension; L03.116 Cellulitis of left lower limb; E11.65 Type 2 diabetes mellitus with hyperglycemia; E11.22 Type 2 diabetes mellitus with diabetic chronic kidney disease; N18.9 Chronic kidney disease, unspecified; I50.9 Heart failure, unspecified; J96.11 Chronic respiratory failure with hypoxia; L28.1 Prurigo nodularis; E87.1 Hypo-osmolality and hyponatremia; I34.0 Nonrheumatic mitral (valve) insufficiency; E78.5 Hyperlipidemia, unspecified; Z86.14 Personal history of Methicillin resistant Staphylococcus aureus infection; Z99.81 Dependence on supplemental oxygen; Z79.4 Long term (current) use of insulin
CPT/HCPCS: J1815; J3370; P9047

== ENCOUNTER → 2018-04-03 | Outpatient (CLI) | payer OTHER, MEDICAID | LOC: FIMAGING 14:01 | PROVIDERS: ATTEND Internal Medicine Pulmonary Disease | DX: J98.4 Other disorders of lung (principal); R91.1 Solitary pulmonary nodule; S22.079 Unspecified fracture of T9-T10 vertebra ==

== ENCOUNTER → 2018-04-22 | Outpatient (CLI) | payer OTHER, MEDICAID | LOC: BHLMT 11:30 | PROVIDERS: ATTEND Internal Medicine Interventional Cardiology | DX: I27.21 Secondary pulmonary arterial hypertension (principal); I50.810 Right heart failure, unspecified | CPT/HCPCS: 93306-PO ==